=== PATIENT | female | born 1990 | race Caucasian/White ===

== ENCOUNTER 2018-05-10 15:57 | Observation (INO) ==
[2018-05-10] MEDS ORDERED: TERBUTALINE SULFATE 1 MG/ML VIAL SC ONE (16:10)
[2018-05-10] MEDS ORDERED: RINGER'S SOLUTION,LACTATED 1,000 ML IV PRN (16:10)
[2018-05-10] MEDS ORDERED: BETAMETHASONE ACETATE,SOD PHOS 6 MG/ML VIAL IM ONE (16:30)
[2018-05-10 18:51] LABS: Cocaine Ur Negative (NEGATIVE); Urine Barbiturate Negative (NEGATIVE); Urine Benzodiazepines Negative (NEGATIVE); Urine Opiates Negative (NEGATIVE); Urine PCP Negative (NEGATIVE); Urine THC Negative (NEGATIVE)
[2018-05-10] MEDS ORDERED: RANITIDINE HCL 15 MG/ML BTL PO ONE (21:45)
[2018-05-10] MEDS ORDERED: DEXTROSE 5%-LACTATED RINGERS 1,000 ML IV PRN (21:45)
[2018-05-11 08:00] VITALS: BP 120/61
--- NOTE | 2018-05-11 08:04 | HP ---
Chief Complaint - Chief Complaint Date of Service: 05/10/18 Time of Service: 16:10 Chief Complaint: contractions History of Present Illness: 28 yo at 35 5/7 presented to office complaining of contractions of increasing frequency and intensity yesterday am. Her NST showed contractions q 2-3 min so she was sent to L&D for further observation. Her contractions temporarily spaced out with IV hydration and terbutaline 0.25mg SC x 1, but continued to increase with any activity. Her cervix remained unchanged, but because of the intensity of her contractions and prior c/s, she was admitted for 23h observation and a course of steroids. This complicated by prior C/S, anxiety/depression, and ADD. Rh positive Rubella immune GBS pending Medical History (Last Reviewed 05/11/18 @ 07:58 by Maikol Angeles DO) ADD (attention deficit disorder) Onset Date: Unknown Abnormal Pap smear of cervix Onset Date: ~2011 ASCUS +HPV Anxiety Onset Date: ~08/27/12 Depression Onset Date: Unknown Female infertility Onset Date: ~07/29/17 Oligomenorrhea Onset Date: ~07/29/17 [place] teeth extracted Onset Date: ~2004 Surgical History: Surgical History (Last Reviewed 05/11/18 @ 07:58 by Maikol Angeles DO) History of colposcopy Onset Date: ~06/05/11 ASCUS, +HPV Hx of adenoidectomy Onset Date: ~2008 Hx of tonsillectomy Onset Date: ~2008 Previous section Onset Date: 12/01/11 meconium stained fluid, non-reassuring heart tones Family History: Family History (Last Reviewed 05/11/18 @ 07:58 by Maikol Angeles DO) Father Coronary artery disease Grandfather , paternal Cancer prostate Grandmother Hypertension Mother Alive and well Social History: Preferred Language Setswana Smoking Status Never smoker (Last Updated 05/10/18 @ 16:07 by Maikol Angeles DO) No Social History Section defined Review Of Systems (GEN) - Review of Systems Generalized/Overall Review: Present: No Symptoms Reported EENTM: Present: No Symptoms Reported Respiratory: Present: No Symptoms Reported Cardiac: Present: No Symptoms Reported Abdominal: Present: Other - contractions Genitourinary: Present: No Symptoms Reported Musculoskeletal: Present: No Symptoms Reported Neurological: Present: No Symptoms Reported Skin: Present: No Symptoms Reported Endocrine: Present: No Symptoms Reported Immunizations: IMMUNIZATION HX Immunizations Up to Date Yes Allergies/Adverse Reactions: Allergies Allergy/AdvReac Type Severity Reaction Status Date / Time No Known Allergies Allergy Verified 05/10/18 14:47 Home Medications: HOME MEDICATIONS vitamin,calcium,kkciovhr-pvma-gybyy acid tablet 1 tab PO DAILY 10/23/17 [Last Taken 05/09/18 20:00] ranitidine 150 mg tablet 150 mg PO DAILY 04/15/18 [Last Taken 05/09/18 20:00] Exam - Exam Vital Signs: Vital Signs - Last Taken Temp 36.6 C 05/10/18 16:45 Pulse 106 H 05/10/18 16:45 Resp 18 05/10/18 16:45 BP 122/67 05/10/18 16:45 Pulse Ox 98 05/10/18 16:45 Constitutional: Present: Alert, Oriented x3, Cooperative, Mild distress ENT Exam: Present: hearing grossly normal Breasts: Present: Exam deferred Respiratory: Present: lungs clear, no respiratory distress Cardiovascular/Chest: Present: tachycardia, other - normal rhythm Abdomen: Present: soft, nontender, no rebound tenderness, other - gravid /Rectal: Present: Other - cervix - cl/th/high Extremity: Present: no pedal edema, no calf tenderness Skin Exam: Present: normal color, warm/dry, no cyanosis Lymphatic: Present: no adenopathy Neurologic: Present: alert, normal mood/affect, oriented x 3 Appearance: Present: appropriate appearance, appropriate insight Eye contact: Present: cooperative, good eye contact Thoughts: Present: normal thought pattern Diagnostic Studies: Laboratory Results Urine Opiates Screen Negative (NEGATIVE) 05/10/18 17:15 Barbiturate Screen Negative (NEGATIVE) 05/10/18 17:15 Ur Phencyclidine Scrn Negative (NEGATIVE) 05/10/18 17:15 Urine Amphetamine Negative (NEGATIVE) 05/10/18 17:15 U Benzodiazepines Scrn Negative (NEGATIVE) 05/10/18 17:15 Urine Cocaine Screen Negative (NEGATIVE) 05/10/18 17:15 Urine Marijuana (THC) Negative (NEGATIVE) 05/10/18 17:15 NST reactive FHT 140, good BTBV, accelerations, no decelerations Contractions q2-3 min Assessment/Plan - Assessment/Plan (1) Threatened premature labor Assessment: Admit for observation to assure no signs of uterine rupture, intolerance to labor, and to complete a course of steroids. Problem: Acute (2) Previous section Problem: Acute (3) ADD (attention deficit disorder) Problem: Acute (4) Anxiety and depression Problem: Acute
--- NOTE | 2018-05-11 08:10 | PN ---
Subjective - Date and Time Seen Date: 05/11/18 Time: 08:05 Subjective Narrative: Patient states contractions much less frequent and not as painful as yesterday. Objective - Review of Systems Generalized/Overall Review: Reports: No Symptoms Reported EENTM: Reports: No Symptoms Reported Respiratory: Reports: No Symptoms Reported Cardiac: Reports: No Symptoms Reported Abdominal: Reports: No Symptoms Reported Genitourinary Symptoms: Reports: No Symptoms Reported Musculoskeletal Complaints: Reports: No Symptoms Reported Neurological: Reports: No Symptoms Reported Skin: Reports: No Symptoms Reported - Vitals Vitals: Last Vital Signs Temp 36.8 C 05/11/18 07:59 Pulse 110 H 05/11/18 07:59 Resp 18 05/11/18 07:59 BP 120/61 05/11/18 07:59 Pulse Ox 97 05/11/18 07:59 NST reactive FHT 140, reassuring Contractions irregular with frequent irritability - Exam Constitutional: Present: Alert, Oriented x3, Cooperative, No distress ENT Exam: Present: hearing grossly normal Breasts: Present: Exam deferred Respiratory: Present: lungs clear, no respiratory distress Cardiovascular/Chest: Present: tachycardia Abdomen: Present: soft, nontender, no rebound tenderness, other - gravid /Rectal: Present: Exam deferred Extremity: Present: no pedal edema, no calf tenderness Skin Exam: Present: normal color, warm/dry, no cyanosis Neurologic: Present: alert, normal mood/affect, oriented x 3 Appearance: Present: appropriate appearance, appropriate insight Eye contact: Present: cooperative, good eye contact Thoughts: Present: normal thought pattern, no apparent hallucination Assessment/Plan Plan Narrative: Will discharge patient this am and have her return to clinic this afternoon for 2nd betamethasone injection. PTL precautions. - Problems/Diagnosis (1) Threatened premature labor Problem: Acute Qualifiers: Trimester: third trimester Qualified Code(s): O47.03 - False labor before 37 completed weeks of gestation, third trimester (2) Previous section Problem: Acute (3) ADD (attention deficit disorder) Problem: Acute (4) Anxiety and depression Problem: Acute
--- NOTE | 2018-05-11 08:19 | DS ---
(1) Threatened premature labor Problem: Acute Qualifiers: Trimester: third trimester Qualified Code(s): O47.03 - False labor before 37 completed weeks of gestation, third trimester (2) Previous section Problem: Acute (3) ADD (attention deficit disorder) Problem: Acute (4) Anxiety and depression Problem: Acute Description of Stay: 28 yo admitted at 35 5/7wks to L&D for 23 h observation due to persistent painful frequent contractions with history of prior c/s. She received only temporary relief with terbutaline. She received a dose of betamethasone at 1630 and had a GBS culture done with results pending. Over the course of her hospital stay her contractions decreased frequency and intensity and she was discharged to home with PTL precautions and instructions to follow up in office at 1600 today for her 2nd dose of betamethasone. Procedures Performed: see notes below - NST, continuous /toco monitoring, IV hydration, tocolytics Results and Findings: Lab Pending Results 05/10/18 17:15: Urine Opiates Screen Negative, Barbiturate Screen Negative, Ur Phencyclidine Scrn Negative, Urine Amphetamine Negative, U Benzodiazepines Scrn Negative, Urine Cocaine Screen Negative, Urine Marijuana (THC) Negative Discharge Location: Home Disposition: Home self-care Condition: Good Discharge Activity: Other - No heavy lifting/strenuous activity or sex/nipple stimulation till 36 weeks Discharge Diet: General/regular food Problem Oriented Discharge Instructions to Patient/Family: Labor Information, [id number] Additional Patient Instructions (free text): [facility] 4[facility]30[facility] for your 2nd Betamethasone injection. Please call with contractions that you cannot walk or talk through, vaginal bleeding, Leaking of fluid, or decreased movement. Please call with any questions/concerns. [facility] [phone]. Complete Home Medications List: Complete Home Medication List: vitamin,calcium,uwwxxrtu-ursv-wriiw acid tablet 1 tab PO DAILY 10/23/17 ranitidine 150 mg tablet 150 mg PO DAILY 04/15/18
== END 2018-05-11 08:50 | disposition home or self-care (01) ==
LOC: OBCLINIC 15:57 → OB 15:57
PROVIDERS: ADMIT Obstetrics & Gynecology; ATTEND Obstetrics & Gynecology
CPT/HCPCS: 59025; 80307; 96365; 96366; 96372; G0378

== ENCOUNTER 2018-05-15 18:56 | Inpatient (IN) ==
[2018-05-15] MEDS ORDERED: RINGER'S SOLUTION,LACTATED 1,000 ML IV ONE (19:29)
[2018-05-15] MEDS: TERBUTALINE SULFATE 1 MG/ML VIAL SC SCH ×2 (19:39→20:28)
[2018-05-15 20:09] LABS: Urine Appearance Slightly Cloudy (CLEAR); Urine Bilirubin Negative (NEGATIVE); Urine Blood 25 /ul (NEGATIVE); Urine Color Yellow; Urine Ketone Negative (NEGATIVE); Urine Nitrite Negative (NEGATIVE); Urine Protein Negative (NEGATIVE); Urine Specific Gravity 1.015 SP.GR. (1.005-1.010); Urine Urobilinogen Normal (NORMAL)
[2018-05-15 20:10] LABS: Urine WBC 0-5 /hpf (0-5)
[2018-05-15 20:13] LABS: Urine Bacteria TRACE; Urine RBC 0-5 /hpf (0-5)
[2018-05-15 20:16] LABS: Cocaine Ur Negative (NEGATIVE); Urine Barbiturate Negative (NEGATIVE); Urine Benzodiazepines Negative (NEGATIVE); Urine Opiates Negative (NEGATIVE); Urine PCP Negative (NEGATIVE); Urine THC Negative (NEGATIVE)
[2018-05-15] MEDS ORDERED: RINGER'S SOLUTION,LACTATED 1,000 ML IV PRN (21:01)
[2018-05-15] MEDS ORDERED: ceFAZolin SODIUM/DEXTROSE,ISO 2 GM/50 ML BAG IV ONE (21:01)
[2018-05-15] MEDS ORDERED: OXYTOCIN 20 UNITS in RINGER'S SOLUTION,LACTATED 1,000 ML IV ONE (21:01)
--- NOTE | 2018-05-15 21:41 | HP ---
Chief Complaint - Chief Complaint Date of Service: 05/15/18 Time of Service: 21:24 Chief Complaint: painful contractions History of Present Illness: Pt is a 28y/o @ 36.6wks with hx of PTL s/p BTM x2 last week presented today with painful contractions. They started around 3pm and then she took a nap, drank fluids, showered and contractions continued to be more frequent and more painful. She denies leaking of fluid, vaginal bleeding, and feel active movements. Medical History (Last Reviewed 05/11/18 @ 07:58 by Maikol Angeles DO) ADD (attention deficit disorder) Onset Date: Unknown Abnormal Pap smear of cervix Onset Date: ~2011 ASCUS +HPV Anxiety Onset Date: ~08/27/12 Depression Onset Date: Unknown Female infertility Onset Date: ~07/29/17 Oligomenorrhea Onset Date: ~07/29/17 [place] teeth extracted Onset Date: ~2004 Surgical History: Surgical History (Last Reviewed 05/11/18 @ 07:58 by Maikol Angeles DO) History of colposcopy Onset Date: ~06/05/11 ASCUS, +HPV Hx of adenoidectomy Onset Date: ~2008 Hx of tonsillectomy Onset Date: ~2008 Previous section Onset Date: 12/01/11 meconium stained fluid, non-reassuring heart tones Family History: Family History (Last Reviewed 05/11/18 @ 07:58 by Maikol Angeles DO) Father Coronary artery disease Grandfather , paternal Cancer prostate Grandmother Hypertension Mother Alive and well Social History: Preferred Language Estonian Smoking Status Never smoker (Last Updated 05/13/18 @ 15:41 by Mao Desir MD) No Social History Section defined Review Of Systems (GEN) - Review of Systems EENTM: Present: No Symptoms Reported Respiratory: Present: No Symptoms Reported Cardiac: Present: No Symptoms Reported Abdominal: Present: Other - regular painful contractions, active movement Genitourinary: Present: No Symptoms Reported Musculoskeletal: Present: No Symptoms Reported Neurological: Present: No Symptoms Reported Skin: Present: No Symptoms Reported Endocrine: Present: No Symptoms Reported Immunizations: IMMUNIZATION HX Immunizations Up to Date Yes Allergies/Adverse Reactions: Allergies Allergy/AdvReac Type Severity Reaction Status Date / Time No Known Allergies Allergy Verified 05/15/18 19:15 Home Medications: HOME MEDICATIONS vitamin,calcium,pitlymnn-rczz-ydfwd acid tablet 1 tab PO DAILY 10/23/17 [Last Taken 05/09/18 20:00] ranitidine 150 mg tablet 150 mg PO DAILY 04/15/18 [Last Taken 05/09/18 20:00] Exam - Exam Constitutional: Present: Alert, Oriented x3, Cooperative, No distress Eye Exam: bilateral eye: normal inspection, abnormal EOM Neck: Present: full range of motion, supple, normal inspection, trachea midline Respiratory: Present: chest non-tender, lungs clear, normal breath sounds, no r espiratory distress Cardiovascular/Chest: Present: normal peripheral pulses, regular rate, rhythm, no edema Abdomen: Present: Normal bowel sounds, soft, nontender /Rectal: Present: Other - closed/th/high FHTs:160's, mod david, no decels, + accels [place]: q2 min Extremity: Present: normal range of motion, non-tender, normal inspection, no pedal edema, no calf tenderness Skin Exam: Present: normal color, warm/dry, no cyanosis Neurologic: Present: no motor/sensory deficits, alert, oriented x 3 Appearance: Present: appropriate appearance Eye contact: Present: cooperative, good eye contact, normal speech Thoughts: Present: normal thought pattern Diagnostic Studies: Abnormal Lab Results 05/15/18 Range/Units 19:59 Urine Blood 25 H (NEGATIVE) /ul Laboratory Results Urine Color Yellow 05/15/18 19:59 Urine Appearance Slightly cloudy (CLEAR) 05/15/18 19:59 Urine pH 7.0 pH (5.0-7.0) 05/15/18 19:59 Ur Specific Luther 1.015 SP.GR. (1.005-1.010) 05/15/18 19:59 Urine Protein Negative mg/dL (NEGATIVE) 05/15/18 19:59 Urine Glucose (UA) Negative mg/dL (NEGATIVE) 05/15/18 19:59 Urine Ketones Negative mg/dL (NEGATIVE) 05/15/18 19:59 Urine Blood 25 /ul (NEGATIVE) H 05/15/18 19:59 Urine Nitrate Negative (NEGATIVE) 05/15/18 19:59 Urine Bilirubin Negative mg/dl (NEGATIVE) 05/15/18 19:59 Urine Urobilinogen Normal EU/dl (NORMAL) 05/15/18 19:59 Ur Leukocyte Esterase Negative /ul (NEGATIVE) 05/15/18 19:59 Urine RBC 0-5 /hpf (0-5) 05/15/18 19:59 Urine WBC 0-5 /hpf (0-5) 05/15/18 19:59 Ur Epithelial Cells 0-5 /hpf (0-5) 05/15/18 19:59 Urine Bacteria Trace (NONE) 05/15/18 19:59 Urine Opiates Screen Negative (NEGATIVE) 05/15/18 19:59 Barbiturate Screen Negative (NEGATIVE) 05/15/18 19:59 Ur Phencyclidine Scrn Negative (NEGATIVE) 05/15/18 19:59 Urine Amphetamine Negative (NEGATIVE) 05/15/18 19:59 U Benzodiazepines Scrn Negative (NEGATIVE) 05/15/18 19:59 Urine Cocaine Screen Negative (NEGATIVE) 05/15/18 19:59 Urine Marijuana (THC) Negative (NEGATIVE) 05/15/18 19:59 Assessment/Plan - Assessment/Plan (1) labor Assessment: Regular painful contractions that continued despite to IVF or terbutaline. Recommend proceeding with RCD. Consents signed. All questions and concerns were addressed. Team called in and pt prepared for RCD. Problem: Acute (2) labor Problem: Acute (3) Previous section Problem: Acute (4) ADD (attention deficit disorder) Problem: Acute (5) Anxiety and depression Problem: Acute
--- NOTE | 2018-05-15 21:44 | ANES ---
Anesthesia Pre Procedure Eval HOME MEDICATIONS vitamin,calcium,ysncbnsz-rmvt-iqtnk acid tablet 1 tab PO DAILY 10/23/17 [Last Taken 05/09/18 20:00] ranitidine 150 mg tablet 150 mg PO DAILY 04/15/18 [Last Taken 05/09/18 20:00] Allergies/Adverse Reactions: Allergies Allergy/AdvReac Type Severity Reaction Status Date / Time No Known Allergies Allergy Verified 05/15/18 19:15 - Planned Procedure Planned Procedure: C/S Medication List Reviewed:: Yes Allergies Verified: Yes Medical History (Last Reviewed 05/15/18 @ 21:43 by Cordell Gann CRNA) ADD (attention deficit disorder) Onset Date: Unknown Abnormal Pap smear of cervix Onset Date: ~2011 ASCUS +HPV Anxiety Onset Date: ~08/27/12 Depression Onset Date: Unknown Female infertility Onset Date: ~07/29/17 Oligomenorrhea Onset Date: ~07/29/17 [place] teeth extracted Onset Date: ~2004 Surgical History (Last Reviewed 05/15/18 @ 21:43 by Cordell Gann CRNA) History of colposcopy Onset Date: ~06/05/11 ASCUS, +HPV Hx of adenoidectomy Onset Date: ~2008 Hx of tonsillectomy Onset Date: ~2008 Previous section Onset Date: 12/01/11 meconium stained fluid, non-reassuring heart tones Family History (Last Reviewed 05/15/18 @ 21:43 by Cordell Gann CRNA) Father Coronary artery disease Grandfather , paternal Cancer prostate Grandmother Hypertension Mother Alive and well - Family Anesthesia History Family History:: no untoward family reactions to anesthesia, no familial bleeding tendencies, no family history of clotting disorders, no family history of premature - Airway/Neck/Teeth Within Normal Limits:: Yes Mallampatti Score: 2 Thyromental (T-M) distance: > 6 cm Mandibulo Hyoid distance: > 3 cm - Respiratory Respiratory Physical: lungs clear Smoking Status: Never smoker Discussed smoking cessation including day of surgery: No Sleep Apnea currently treated: No Sleep Apnea by current assessment: No Discussed Risks/Treatment of CUONG: No - Cardiovascular Tolerate Activity: Good Heart Sounds: S1 & S2, Regular - Anesthesia Assessment and Plan ASA Class: PS, II, E Anesthesia Type Plan: Spinal
[2018-05-15] MEDS ORDERED: SENNOSIDES 8.6 MG TABLET PO PRN (22:59)
[2018-05-15] MEDS ORDERED: SIMETHICONE 80 MG TAB.CHEW PO PRN (22:59)
[2018-05-15] MEDS ORDERED: BISACODYL 10 MG SUPP.RECT RC PRN (22:59)
[2018-05-15] MEDS ORDERED: oxyCODONE HCL/ACETAMINOPHEN 1 TAB TABLET PO PRN (22:59)
[2018-05-15] MEDS ORDERED: ONDANSETRON HCL/PF 2 MG/ML VIAL IV PRN (22:59)
--- NOTE | 2018-05-15 23:06 | OR ---
Operative Report - Dictated Report Narrative: Indication: 29-year-old 1 para 0 at 36 3/7 weeks admitted for labor, prior section. Status: Planned Pre Operative Diagnosis: 36 3/7 weeks intrauterine , labor, prior section. Post Operative Diagnosis: Same. Procedure Preformed: Repeat Low Transverse Section Surgeon: Delores Wagoner DO Elephant Keeper: OR Staff Anesthesia: Spinal ,TAP block Estimated Blood Loss: 400 mL Urine Output: 100 mL of clear urine Fluids Given: 800 mL of crystalloid Drains: Wright to gravity Surgical Complications: None Specimens: Placenta to freezer Findings: Female born at 2221 on 05/15/2018 with Apgars 9 and 9, in cephalic presentation, 7 lbs 2.2oz. Normal uterus, tubes, ovaries. Technique: The patient was taken to the operating room and placed in dorsal supine position with a left lateral tilt. After adequate spinal anesthesia, wright catheter insertion,SCDs placed, and 2 g of Ancef given preoperatively, the abdominal cavity was entered via a modified Pedro-Goodman incision along prior incision. A low transverse incision was made in the lower uterine segment and extended laterally and upwardly with digital traction. Clear fluid was noted upon amniotomy. The infant was delivered in cephalic presentation. The cord was clamped and cut and infant was handed off to awaiting carpet finishing supervisor. The placenta was allowed to deliver spontaneously. The uterus was cleared of clot and debris. Uterine incision was closed with 0 Vicryl using a running stitch. A second imbricating layer was placed. The peritoneum was closed with a running 3-0 Monocryl. The same suture was used to approximate the rectus and pyramidalis muscles. The fascia was closed with a running 0 Vicryl. The subcutaneous layer was closed with a running 3-0 Monocryl. The skin was closed with a running 4-0 Monocryl and benzoin and steri strips were placed. Sponge, lap, needle, and instrument count were correct x 2. Disposition: The patient was transferred to post anesthesia care unit in good condition. History for MU Definition: * The number of deliveries resulting in a live the patient experienced prior to current hospitalization * The previous delivery of live twins or any live multiple gestation is considered one live event. *If primagravida or nulliparous is documented select zero for the number of previous live births. Live Events: 1
--- NOTE | 2018-05-15 23:15 | ANES ---
Post Anesthesia Discharge - Transfer of Care Transfer of Care handoff given to nurse: Yes - Discharge from PACU Discharge from PACU when meets criteria: Yes - Discharge to ASU Discharge to ASU-no complications/pt stable: Yes
--- NOTE | 2018-05-15 23:17 | ANES ---
Anesthesia Procedure Note Procedure Note: ANESTHESIA PROCEDURE NOTE Date of Procedure: 05/15/2018. Time of procedure: 05/09/2004. Performed by: Cordell Gann CRNA Boathouse Keeper: None. Preprocedure diagnosis: Prior . Post procedure diagnosis: Same. Procedure: Bilateral ultrasound-guided transversus abdominis plane block for postop analgesia. Indications: The patient is a 28 -year-old female post section. Findings: See below. Details of the procedure: ChloraPrep was used on the patient's abdomen and the procedure was performed under sterile technique. The right abdominal fascial layer between the internal oblique muscle and the transversus abdominis muscles was identified under ultrasound guidance. A 21-gauge 4 inch block needle was inserted under ultrasound guidance to the target fascial plane. 15 mL's of 0.5% bupivacaine plus epinephrine 1:200,000 was injected after negative aspiration for blood. The needle was removed intact and the procedure was then repeated at the left side. No complications were noted. The images were retained in the hospital medical database . EBL: Minimal. Fluids: N/A. Specimen: N/A. Post procedure condition: The patient tolerated the procedure well. No complications were noted. Thank you for this consultation. Cordell Gann CRNA
--- NOTE | 2018-05-15 23:18 | ANES ---
Post Anesthesia Assessment - Vital Signs Vitals: Last Vital Signs Temp 36.4 C 05/15/18 23:15 Pulse 109 H 05/15/18 23:15 Resp 18 05/15/18 23:15 BP 132/58 05/15/18 23:15 Pulse Ox 98 05/15/18 23:15 Airway Patency: Normal - Mental Status Level Of Consciousness: Awake - Pain Level Pain Score: 2 - N/V Assessment Nausea/Vomiting Presence: None Dehydration:: No
[2018-05-16] MEDS: ENOXAPARIN SODIUM 40 MG/0.4 ML SYRG SC SCH (05:38)
[2018-05-16] MEDS: DOCUSATE SODIUM 100 MG CAPSULE PO SCH ×2 (08:16→22:54)
[2018-05-16] MEDS: oxyCODONE HCL/ACETAMINOPHEN 1 TAB TABLET PO PRN ×3 (08:16→22:55)
[2018-05-16] MEDS: KETOROLAC TROMETHAMINE 30 MG/ML VIAL IV PRN ×2 (08:16→15:01)
--- NOTE | 2018-05-16 14:40 | PN ---
Progess Note - Interim Date: 05/16/18 Time: 14:04 Narrative: 05/16/18 14:04 Subjective: Doing well, ambulating, voiding, tolerative po. Pain controlled by po meds. Breast feeding. Minimal lochea. Objective: VSS Abd: soft, difusely tender, bandage c/d/i Ext: non-tender minimal edema A/P: POD #1, stable, afebrile Pain-controlled with po meds Routine postop care.
[2018-05-16] MEDS: IBUPROFEN 800 MG TABLET PO PRN (22:54)
[2018-05-17] MEDS: IBUPROFEN 800 MG TABLET PO PRN ×3 (05:06→19:33)
[2018-05-17] MEDS: ENOXAPARIN SODIUM 40 MG/0.4 ML SYRG SC SCH (05:07)
[2018-05-17] MEDS: DOCUSATE SODIUM 100 MG CAPSULE PO SCH ×2 (08:39→20:48)
[2018-05-17] MEDS: oxyCODONE HCL/ACETAMINOPHEN 1 TAB TABLET PO PRN (13:17)
--- NOTE | 2018-05-17 17:46 | PN ---
Subjective - Date and Time Seen Date: 05/17/18 Subjective Narrative: post op day 2, s/p repeat c/s for labor patient is doing well without complaints. ambulating well and pain controlled. baby also doing well. breast feeding. normal lochia. Objective - Vitals Vitals: Last Vital Signs Temp 37.2 C 05/17/18 11:52 Pulse 76 05/17/18 11:52 Resp 16 05/17/18 11:52 BP 113/66 05/17/18 11:52 Pulse Ox 99 05/17/18 11:52 - Exam Constitutional: Present: Alert, Oriented x3, Cooperative Abdomen: Present: soft, nontender, nondistended, other - incision dry and clean. fundus firm and below umbilicus. Extremity: Present: no pedal edema, no calf tenderness Skin Exam: Present: normal color, warm/dry, no cyanosis Appearance: Present: appropriate appearance Eye contact: Present: cooperative, good eye contact, normal speech Cauti Physician Documentation - Urinary Catheter Management Urethral (Tai) Date of Insertion: 05/15/18 Time of Insertion: 22:05 Date of Removal: 05/16/18 Time of Removal: 10:30 Assessment/Plan Plan Narrative: A: post op day 2, s/p repeat c/s, stable and well. plan: routine post op and care. ambulation encouraged. Mao Desir MD
[2018-05-18] MEDS: ENOXAPARIN SODIUM 40 MG/0.4 ML SYRG SC SCH (04:06)
[2018-05-18] MEDS: IBUPROFEN 800 MG TABLET PO PRN ×3 (06:48→20:57)
[2018-05-18] MEDS: oxyCODONE HCL/ACETAMINOPHEN 1 TAB TABLET PO PRN ×3 (06:48→20:58)
[2018-05-18] MEDS: DOCUSATE SODIUM 100 MG CAPSULE PO SCH ×2 (08:57→20:57)
--- NOTE | 2018-05-18 18:10 | PN ---
Subjective - Date and Time Seen Date: 05/18/18 Subjective Narrative: post op day 3, s/p repeat c/s for labor. doing well. and pumping. pain controlled. normal lochia. Objective - Vitals Vitals: Last Vital Signs Temp 36.9 C 05/18/18 13:03 Pulse 63 05/18/18 13:03 Resp 16 05/18/18 13:03 BP 116/76 05/18/18 13:03 Pulse Ox 100 05/18/18 13:03 - Exam Constitutional: Present: Alert, Oriented x3, Cooperative Abdomen: Present: soft, nontender, nondistended, other - incision dry and clean with steri-strips intact. fundus firm and below umbilicus Extremity: Present: normal range of motion, no pedal edema, no calf tenderness Skin Exam: Present: normal color, warm/dry, no cyanosis Appearance: Present: appropriate appearance Eye contact: Present: cooperative, good eye contact, normal speech Cauti Physician Documentation - Urinary Catheter Management Urethral (Tai) Date of Insertion: 05/15/18 Time of Insertion: 22:05 Date of Removal: 05/16/18 Time of Removal: 10:30 Assessment/Plan Plan Narrative: A: post op day 3 from repeat c/s, stable and well. Plan: will discharge home today. Mao Desir MD
[2018-05-18 21:11] VITALS: BP 116/72
== END 2018-05-18 23:55 | disposition home or self-care (01) | DRG 788 ==
LOC: OBCLINIC 18:56 → OB 21:03
PROVIDERS: ADMIT Obstetrics & Gynecology Gynecologic Oncology; ATTEND Obstetrics & Gynecology Gynecologic Oncology
CPT/HCPCS: 59025; 64486; 80307; 81001